=== PATIENT | female | born 1950 | race Hispanic/Latino ===

== ENCOUNTER → 2024-05-10 | Day surgery (SDC) | payer MEDICARE ==
[~2024-05-10] MED LIST: EPHEDRINE SULFATE INJ 50 MG/ML VIAL ONE; LATANOPROST2.5 ML OU; LEVOTHYROXINE112 MCG PO; MAGNESIUM OXID400 MG PO; MELOXICAM7.5 MG PO; METHOCARBAMOL750 MG PO; ROPIVACAINE/EPI/CLONIDINE/KET 50 ML SYRINGE INJ ONE; SEVOFLURANE INHAL SOLN 250 ML PEN BTL ONE; SUGAMMADEX SODIUM 200 MG/2 ML VIAL IV ONE; TRANEXAMIC ACID 1,000 MG/10 ML ML ONE; TURMERIC CURCU1 EACH PO; ZESTRIL10 MG PO; [UNRECOGNIZED DRUG - OTHER] PO
[2024-05-10] MEDS: LACTATED RINGER'S 1,000 ML ONE (09:14)
[2024-05-10] MEDS: CEFAZOLIN SODIUM 2 GM ONE (09:14)
[2024-05-10] MEDS: FENTANYL CITRATE/PF 100MCG/2 ML INJ ONE (11:25)
[2024-05-10] MEDS: KETOROLAC TROMETHAMINE 30 MG/ML VIAL ONE (11:56)
[2024-05-10] MEDS: HYDROCODONE/APAP 5MG-325MG TAB ONE (12:28)
[2024-05-10 15:00] VITALS: BP 112/68; PULSE 76; RESP 15; O2SAT 98
== END | disposition home or self-care (01) ==
LOC: OR 07:37
PROVIDERS: ATTEND Orthopaedic Surgery
DX: M16.11 Unilateral primary osteoarthritis, right hip (principal); M70.61 Trochanteric bursitis, right hip; M25.361 Other instability, right knee; M17.11 Unilateral primary osteoarthritis, right knee; M47.26 Other spondylosis with radiculopathy, lumbar region; I10 Essential (primary) hypertension; E03.9 Hypothyroidism, unspecified; G89.29 Other chronic pain; H40.9 Unspecified glaucoma; Z79.1 Long term (current) use of non-steroidal anti-inflammatories (NSAID); Z79.899 Other long term (current) drug therapy
CPT/HCPCS: 27130; 73502; 86850; 86900; 97110; 97116 ×2; 97161; 97530; C1713 ×3; C1776 ×2; J1885; J3010; J7121; 76000